=== PATIENT | male | born 1965 ===

== ENCOUNTER 2020-10-28 11:24 | Emergency (ER) | payer OTHER ==
[2020-10-28 11:38] VITALS: BP 174/106; PULSE 58
--- NOTE | 2020-10-28 12:01 | EDM.PDOC ---
ED HPI GENERAL MEDICAL PROBLEM - General Chief Complaint: Upper Extremity Injury/Pain Stated Complaint: left middle finger crush/laceration Time Seen by Provider: 10/28/20 11:37 Source of Information: Reports: Patient History Limitations: Reports: No Limitations - History of Present Illness INITIAL COMMENTS - FREE TEXT/NARRATIVE: Injured right middle finger and left little finger in equipment at work Thinks tetanus was 2 years ago Onset: Today, Sudden Duration: Hour(s): Location: Reports: Upper Extremity, Left, Upper Extremity, Right Quality: Reports: Throbbing Severity: Moderate Context: Reports: Trauma Treatments 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 left middle finger and right pinkie Pain Score (Numeric/FACES): 5 - Related Data Allergies Allergy/AdvReac Type Severity Reaction Status Date / Time No Known Allergies Allergy Verified 10/28/20 11:28 Home Meds: Home Meds lisinopriL [Lisinopril] 40 mg PO DAILY 10/28/20 [History] Review of Systems - Review of Systems Review Of Systems: See Below Musculoskeletal: Reports: Other (Injury to left middle and right little fingers) Skin: Reports: Other (Laceration to right middle finger) ED EXAM, GENERAL - Physical Exam Exam: See Below Exam Limited By: No Limitations General Appearance: Alert, WD/WN, Mild Distress Extremities: Other (Right little finger with bruising and swelling to distal finger Left middle finger with swelling and brusing to distal finger Flap type 1 cm laceration to medial edge of distal finger Flap is too thin to suture Nail intact ) Course - Vital Signs Last Recorded V/S: Last Vital Signs Temp 96.9 F 10/28/20 11:30 Pulse 58 L 10/28/20 11:30 Resp 16 10/28/20 11:30 BP 174/106 H 10/28/20 11:30 Pulse Ox 97 10/28/20 11:30 - Orders/Labs/Meds Orders: Active Orders 24 hr Category Date Time Status Fingers Fifth Digit Rt F9 [CR] Stat Exams 10/28/20 11:29 Ordered Fingers Third Digit Lt F2 [CR] Stat Exams 10/28/20 11:29 Ordered - Re-Assessments/Exams Free Text/Narrative Re-Assessment/Exam: 10/28/20 11:56 Xray: Fracture of distal phalanges left middle finger Right little finger with irregularity at DIP joint Middle finger cleaned and dressed per nurse Splint placed per nurse Departure - Departure Time of Disposition: 12:00 Disposition: Home, Self-Care 01 Clinical Impression: Fracture, finger, open Qualifiers: Encounter type: initial encounter Finger: middle finger Phalanx: distal Fracture alignment: displaced Laterality: left Qualified Code(s): S62.633B - Displaced fracture of distal phalanx of left middle finger, initial encounter for open fracture - Discharge Information *PRESCRIPTION DRUG MONITORING PROGRAM REVIEWED*: Not Applicable *COPY OF PRESCRIPTION DRUG MONITORING REPORT IN PATIENT ABIGAIL: Not Applicable Instructions: Crush Injury of the Hand, [id number], Finger Fracture, Adult Additional Instructions: Keep wound clean Wear splint Follow up in clinic in one week Rx Keflex 500mg TID for 4 days Sepsis Event Note (ED) - Evaluation Sepsis Screening Result: No Definite Risk - Focused Exam Vital Signs: Vital Signs Temp Pulse Resp BP Pulse Ox 10/28/20 11:30 96.9 F 58 L 16 174/106 H 97 - My Orders Last 24 Hours: My Active Orders 10/28/20 11:29 Fingers Fifth Digit Rt F9 [CR] Stat Fingers Third Digit Lt F2 [CR] Stat - Assessment/Plan Last 24 Hours: My Active Orders 10/28/20 11:29 Fingers Fifth Digit Rt F9 [CR] Stat Fingers Third Digit Lt F2 [CR] Stat
[2020-10-28] MEDS ORDERED: Bacitracin/Neomycin/Polymyxin B Oint 0.9 GM U/D Packet TOP ONE (12:03)
== END 2020-10-28 12:30 | disposition home or self-care (01) ==
LOC: LL.ED 11:24
DX: S62.633B Displaced fracture of distal phalanx of left middle finger, initial encounter for open fracture (principal); Z79.899 Other long term (current) drug therapy; W23.0XXA Caught, crushed, jammed, or pinched between moving objects, initial encounter; Y99.0 Civilian activity done for income or pay
CPT/HCPCS: 73140-F2; 73140-F9; 99283-25; 99284